=== PATIENT | female | born 1980 | race African-American/Black ===

== ENCOUNTER 2016-07-29 18:33 | Emergency (ER) | payer MEDICAID ==
[~2016-07-29] VITALS: Ht 170.2 cm; Wt 84.0 kg
[2016-07-29] MEDS ORDERED: KETOROLAC 60MG/2ML VIAL IM ONE (21:15)
[2016-07-29 22:52] VITALS: BP 129/77
== END 2016-07-30 01:21 | disposition home or self-care (01) ==
LOC: ER 20:47
DX: S76.319A Strain of muscle, fascia and tendon of the posterior muscle group at thigh level, unspecified thigh, initial encounter (principal); X58.XXXA Exposure to other specified factors, initial encounter; Y93.89 Activity, other specified; Y92.89 Other specified places as the place of occurrence of the external cause; Y99.8 Other external cause status
CPT/HCPCS: 36415; 85379; 96372; 99283; J1885; Z7610

== ENCOUNTER 2016-07-31 05:16 | Emergency (ER) | payer MEDICAID ==
[~2016-07-31] VITALS: Ht 160 cm; Wt 86.0 kg
[2016-07-31] MEDS ORDERED: KETOROLAC 60MG/2ML VIAL IM ONE (06:15)
[2016-07-31 06:22] VITALS: BP 129/77
[2016-07-31] MEDS ORDERED: ACETAMINOPHEN 325MG TABLET PO ONE (06:30)
== END 2016-07-31 06:55 | disposition home or self-care (01) ==
LOC: ER 05:16
DX: S76.912A Strain of unspecified muscles, fascia and tendons at thigh level, left thigh, initial encounter (principal); X58.XXXA Exposure to other specified factors, initial encounter; Y93.89 Activity, other specified; Y99.8 Other external cause status; Y92.89 Other specified places as the place of occurrence of the external cause
CPT/HCPCS: 96372; 99283; J1885

== ENCOUNTER 2017-01-10 04:16 | Emergency (ER) | payer MEDICAID ==
[~2017-01-10] VITALS: Ht 160 cm; Wt 91.0 kg
[2017-01-10] MEDS ORDERED: ASPIRIN 81MG TABLET PO ONE (06:00)
[2017-01-10] MEDS ORDERED: ONDANSETRON HCL 4MG/2ML VIAL IV STA (06:00)
[2017-01-10] MEDS ORDERED: SODIUM CHLORIDE 0.9% 1,000 ML IV ONE (06:00)
[2017-01-10] MEDS ORDERED: MORPHINE SULFATE 4 MG/ML CPJ (NOT FOR IM USE) IV STA (06:00)
[2017-01-10 06:27] LABS: BASOPHILS % 1.2 % (0.0-2.0); EOSINOPHILS % 3.9 % (0.0-5.0); HEMATOCRIT. 32.7 % (36.0-48.0); HEMOGLOBIN. 10.6 g/dL (12.0-16.0); LYMPHOCYTES % 30.8 % (20.0-50.0); MEAN CORPUSCULAR HEMOGLOBIN 28.4 pg (28.0-32.0); MEAN CORPUSCULAR VOLUME 87.7 fL (81.0-99.0); MEAN PLATELET VOLUME 9.5 fl (7.4-10.4); MONOCYTES % 5.6 % (2.0-8.0); NEUTROPHILS % 58.5 % (40.0-76.0); PLATELET 287 x1000/uL (130-400); RED BLOOD CELL COUNT 3.72 mill/uL (4.2-5.4); RED CELL DISTRIBUTION WIDTH 15.1 % (11.6-14.6)
[2017-01-10 06:39] LABS: D-DIMER 0.57 mg/L FEU (<0.50); PARTIAL THROMBOPLASTIN TIME 29.3 sec (23.4-31.0); PROTHROMBIN TIME 10.5 sec (9.4-11.6)
[2017-01-10 06:43] LABS: CARBON DIOXIDE 27 mEq/L (21-32); CHLORIDE 109 mEq/L (98-107); TROPONIN I < 0.02 ng/mL (0.00-0.04)
[2017-01-10 07:04] LABS: CLARITY URINE CLEAR (CLEAR); COLOR URINE YELLOW (YELLOW); GLUCOSE URINE NEGATIVE (NEGATIVE); KETONES URINE NEGATIVE (NEGATIVE); LEUKOCYTE ESTERASE URINE NEGATIVE (NEGATIVE); NITRITE URINE NEGATIVE (NEGATIVE); OCCULT BLOOD URINE 2+ (NEGATIVE); PROTEIN URINE NEGATIVE (NEGATIVE); SPECIFIC GRAVITY URINE 1.021 (1.005-1.030); UROBILINOGEN URINE 0.2 E.U./dL (0.2-1.0)
[2017-01-10 11:28] VITALS: BP 110/51
[2017-01-10] MEDS ORDERED: IOHEXOL-350 100 ML BOTTLE ONE (12:01)
[2017-01-10] MEDS ORDERED: SODIUM CHLORIDE 0.9% 10ML VIAL ONE (12:01)
== END 2017-01-10 11:45 | disposition home or self-care (01) ==
LOC: ER 05:13
DX: R07.89 Other chest pain (principal)
CPT/HCPCS: 36415; 71010; 71275; 80053; 81001; 81025; 83880; 84484; 85025; 85379; 85610; 85730; 87040; 87086; 93005; 93970; 96361; 96374; 96375; 99285; A4216; J2270; J2405; J7030; Q9967; Z7610

== ENCOUNTER 2017-01-26 13:50 | Emergency (ER) | payer MEDICAID ==
[~2017-01-26] VITALS: Ht 160 cm; Wt 91.0 kg
[2017-01-26] MEDS ORDERED: KETOROLAC 60MG/2ML VIAL IM ONE (19:15)
[2017-01-26] MEDS ORDERED: HYDROCODONE/ACETAMINOPHEN 5/325MG TABLET PO ONE (19:15)
[2017-01-26 20:05] LABS: HCG SCREEN NEGATIVE
[2017-01-26 21:05] VITALS: BP 118/62
== END 2017-01-26 21:16 | disposition home or self-care (01) ==
LOC: ER 14:32
DX: M54.17 Radiculopathy, lumbosacral region (principal)
CPT/HCPCS: 84703; 96372; 99283; J1885; Z7610

== ENCOUNTER 2017-02-07 21:38 | Emergency (ER) | payer MEDICAID ==
[~2017-02-07] VITALS: Ht 160 cm; Wt 86.0 kg
[2017-02-07] MEDS ORDERED: KETOROLAC 60MG/2ML VIAL IM ONE ×2 (22:30→22:45)
[2017-02-07] MEDS ORDERED: KETOROLAC 30MG/ML VIAL ONE (22:40)
[2017-02-07 22:45] VITALS: BP 123/72
== END 2017-02-07 22:57 | disposition home or self-care (01) ==
LOC: ER 21:38
DX: M54.5 Low back pain (principal)
CPT/HCPCS: 81025; 96372; 99283; J1885